=== PATIENT | female | born 1930 | race Caucasian/White ===

== ENCOUNTER 2016-10-22 09:39 | Emergency (ER) | payer MEDICARE, OTHER ==
[2016-10-22 10:05] LABS: APPEARANCE,URINE Slightly Cloudy; BILIRUBIN,URINE 1+ (NEGATIVE); COLOR,URINE Yellow; GLUCOSE, URINE (UA) TRACE (NEGATIVE); KETONES,URINE NEGATIVE (NEGATIVE); LEUKOCYTE ESTERASE ,URINE 1+ (NEGATIVE); NITRATE,URINE NEGATIVE (NEGATIVE); OCCULT BLOOD,URINE 3+ (NEG-TRACE); UROBILINOGEN,URINE 0.2 (0.2-1.0 EU)
[2016-10-22 10:12] LABS: ICTOTEST,URINE NEGATIVE (NEGATIVE); RBC,URINE TNTC (0-3AV/HPF); WBC,URINE 60-80 (0-5AV/HPF)
[2016-10-22 10:31] VITALS: BP 127/74; PULSE 72; RESP 16; TEMP 98.3; O2SAT 96
[2016-10-22] MEDS ORDERED: CIPROFLOXACIN HCL 500 MG TAB PO SCH (10:45)
== END 2016-10-22 11:06 | disposition home or self-care (01) | DRG 690 ==
LOC: ED 09:39
DX: N39.0 Urinary tract infection, site not specified (principal)
CPT/HCPCS: 81001; 87088; 99282; 99283

== ENCOUNTER 2018-01-03 08:00 | Outpatient (CLI) | payer MEDICARE, OTHER ==
[2016-10-22 10:31] VITALS: O2SAT 96
== END 2018-01-03 08:01 | disposition home or self-care (01) | DRG 93 ==
LOC: CONVCARE 08:00
PROVIDERS: ATTEND Orthopaedic Surgery
DX: R20.0 Anesthesia of skin (principal); R20.2 Paresthesia of skin; M19.032 Primary osteoarthritis, left wrist; M19.031 Primary osteoarthritis, right wrist
CPT/HCPCS: 73140